=== PATIENT | female | born 2000 | race Caucasian/White ===

== ENCOUNTER 2021-07-06 11:02 | Outpatient (CLI) | payer OTHER | END 2021-07-06 12:20 | disposition home or self-care (01) | LOC: PRENATAL 11:02 | PROVIDERS: ATTEND Obstetrics & Gynecology Maternal & Fetal Medicine | DX: O35.0XX0 Maternal care for (suspected) central nervous system malformation in fetus, not applicable or unspecified (principal); Z3A.20 20 weeks gestation of pregnancy ==

== ENCOUNTER 2021-07-27 11:39 | Outpatient (CLI) | payer OTHER | END 2021-07-27 13:12 | disposition home or self-care (01) | LOC: PRENATAL 11:39 | PROVIDERS: ATTEND Obstetrics & Gynecology Maternal & Fetal Medicine | DX: O35.0XX0 Maternal care for (suspected) central nervous system malformation in fetus, not applicable or unspecified (principal); O35.3XX0 Maternal care for (suspected) damage to fetus from viral disease in mother, not applicable or unspecified; Z3A.23 23 weeks gestation of pregnancy ==

== ENCOUNTER 2021-10-26 18:30 | Inpatient (IN) | payer OTHER ==
[~2021-10-26] VITALS: Ht 167.6 cm; Wt 76.7 kg
[2021-10-30] MEDS ORDERED: IBU800 MG PO (14:48)
[2021-10-30] MEDS ORDERED: COLACE100 MG PO (14:48)
[2021-10-30] MEDS ORDERED: SIMETHICONE80 MG PO (14:48)
[2021-10-30] MEDS ORDERED: PERCOCET 5-3251 EACH PO (14:48)
== END 2021-10-30 15:20 | disposition home or self-care (01) | DRG 788 ==
LOC: LDR 18:30 → OB/GYN 10-27 15:51
PROVIDERS: ADMIT Obstetrics & Gynecology; ATTEND Obstetrics & Gynecology
PROC: 4A1HXCZ Monitoring of Products of Conception, Cardiac Rate, External Approach (ICD-10-PCS; 2021-10-26)
PROC: 10D00Z1 Extraction of Products of Conception, Low, Open Approach (ICD-10-PCS; principal; 2021-10-27 13:00)
DX: O36.8330 Maternal care for abnormalities of the fetal heart rate or rhythm, third trimester, not applicable or unspecified (principal); O32.8XX0 Maternal care for other malpresentation of fetus, not applicable or unspecified; Z3A.36 36 weeks gestation of pregnancy; Z37.0 Single live birth